=== PATIENT | female | born 1965 | race Hispanic/Latino ===

== ENCOUNTER → 2017-08-27 | Outpatient (CLI) | payer OTHER | END | disposition home or self-care (01) | LOC: OIH 12:44 | PROVIDERS: ATTEND Neurological Surgery | DX: M43.06 Spondylolysis, lumbar region (principal); M48.56XA Collapsed vertebra, not elsewhere classified, lumbar region, initial encounter for fracture | CPT/HCPCS: 72100 ==

== ENCOUNTER 2022-06-10 05:55 | Observation (INO) | payer OTHER ==
[2022-06-08 11:17] LABS: ALBUMIN 4.2 g/dL (3.5-5.0); BASOPHILS % (AUTO) 0.6 % (0.0-5.0); CARBON DIOXIDE 24 mmol/L (21-32); CHLORIDE 103 mmol/L (101-111); CREATININE 0.7 mg/dL (0.5-1.5); GLOMERULAR FILTR. RATE CALC 92 mL/min (>60); GLUCOSE,RANDOM 129 mg/dL (70-105); HEMATOCRIT 42.4 % (36-48); LYMPHOCYTES % (AUTO) 30.6 % (21.0-51.0); MEAN CORPUSCULAR HEMOGLOBIN 29.7 pg (27.0-33.0); MONOCYTES % (AUTO) 7.4 % (3.0-13.0); NEUTROPHILS % (AUTO) 60.1 % (40.0-77.0); PLATELET COUNT (AUTO) 305 K/uL (130-400); POTASSIUM 3.3 mmol/L (3.5-5.1); RED BLOOD CELL COUNT(AUTO) 4.71 MIL/uL (4.00-5.50); RED CELL DISTRIBUTION WIDTH 11.9 % (11.0-15.5); SODIUM SERUM 137 mmol/L (136-145); UREA NITROGEN, BLOOD 13 mg/dL (7-18)
[2022-06-08 11:18] LABS: CRP QUANTITATIVE < 2.00 mg/L (0.00-9.0); INR 0.97 (0.85-1.15); PROTHROMBIN TIME 10.6 SEC (9.6-11.6)
[2022-06-08 11:19] LABS: PARTIAL THROMBOPLASTIN TIME 24.6 SEC (26.3-35.5)
[2022-06-09 14:56] VITALS: BP 127/81
[2022-06-10] VITALS (27 sets, daily range): BP systolic 107–134; BP diastolic 65–86
[~2022-06-10] VITALS: Ht 160 cm; Wt 71.1 kg
[~2022-06-10 05:55] MED LIST: ESCI20TA38 PO; ROSU10TA28 PO; SEMA1PEN3 SQ; TRAZ-187 PO; VITAD50000 PO
[2022-06-10] MEDS: CEFAZOLIN SODIUM 1 GM VIAL IVP SCH ×4 (06:00→23:40)
[2022-06-10] MEDS ORDERED: TRANEXAMIC ACID 1000MG/10ML ONE ×2 (06:04→06:05)
[2022-06-10] MEDS ORDERED: ROPIVACAINE 0.5% 5MG/ML 30ML IJ ONE ×2 (06:49→07:13)
[2022-06-10] MEDS ORDERED: 0.9%NACL 1000ML 1,000 ML IV ONE (06:59)
[2022-06-10] MEDS ORDERED: KETOROLAC 30MG VIAL (30MG/ML) ONE (07:13)
[2022-06-10] MEDS ORDERED: SUCCINYLCHOLINE 200MG/10ML SYR ONE (08:11)
[2022-06-10] MEDS ORDERED: LIDOCAINE PF 100MG/5ML (2%) SYRINGE 5ML ONE (08:11)
[2022-06-10] MEDS ORDERED: ONDANSETRON 4MG INJ ONE (08:11)
[2022-06-10] MEDS ORDERED: NEOSTIGMINE 5MG/5ML SYR IV ONE (08:12)
[2022-06-10] MEDS ORDERED: FENTANYL CITRATE PF 50 MCG/1 ML 2ML VIAL ONE (08:12)
[2022-06-10] MEDS ORDERED: PROPOFOL 10 MG/ML 20ML VIAL IV ONE (08:12)
[2022-06-10] MEDS ORDERED: MIDAZOLAM HCL 1 MG/ML 2ML VIAL ONE (08:12)
[2022-06-10] MEDS ORDERED: GLYCOPYRROLATE 1 MG/5 ML SYRINGE ONE (08:12)
[2022-06-10] MEDS ORDERED: DEXAMETHASONE SOD PHOSPHATE 10MG/ML 1ML VIAL ONE (08:12)
[2022-06-10] MEDS ORDERED: ROCURONIUM 10MG/1ML SYR 10 MG/ML ML ONE (08:12)
[2022-06-10] MEDS ORDERED: EPHEDRINE SULFATE 50 MG/ML AMPULE ONE (09:15)
[2022-06-10] MEDS ORDERED: FERROUS FUMARATE 324 MG TABLET PO PRN (11:00)
[2022-06-10] MEDS ORDERED: ONDANSETRON 4MG INJ IVP PRN (11:00)
[2022-06-10] MEDS ORDERED: DiphenhydrAMINE HCL 50 MG/ML VIAL IVP PRN (11:00)
[2022-06-10] MEDS ORDERED: LIDOCAINE HCL-MPF 1% 2ML VIAL IV PRN (11:00)
[2022-06-10] MEDS ORDERED: TRAMADOL HCL 50 MG TABLET PO PRN (11:00)
[2022-06-10] MEDS ORDERED: 0.9%NACL 1000ML 1,000 ML IV SCH (11:00)
[2022-06-10] MEDS ORDERED: POTASSIUM CHLORIDE 10% ELIXIR 20 MEQ/15 ML UDCUP PO PRN (11:00)
[2022-06-10] MEDS ORDERED: POTASSIUM CHLORIDE 20MEQ/100ML 100 ML IV PRN (11:00)
[2022-06-10] MEDS ORDERED: MEPERIDINE-PF 25 MG/ML SYG ONE (11:05)
[2022-06-10] MEDS: KETOROLAC 15MG/ML VIAL (15MG/ML) IV SCH ×2 (13:24→19:57)
[2022-06-10] MEDS: GABAPENTIN 100 MG CAPSULE PO SCH ×2 (15:11→19:56)
[2022-06-10] MEDS: DOCUSATE SODIUM 100 MG CAP PO SCH (19:56)
[2022-06-10] MEDS: ATORVASTATIN 20 MG TABLET PO SCH (19:56)
[2022-06-10] MEDS: CYCLOBENZAPRINE HCL 10 MG TABLET PO PRN (19:56)
[2022-06-10] MEDS: KCL 20 MEQ ERTAB PO PRN ×2 (19:57→21:37)
[2022-06-10] MEDS: TRAZODONE HCL 100 MG TABLET PO SCH (21:37)
[2022-06-10] MEDS: HYDROCODONE/ACETAMINOPHEN 5/325 MG TAB PO PRN (23:46)
[2022-06-11] MEDS: KETOROLAC 15MG/ML VIAL (15MG/ML) IV SCH (02:02)
[2022-06-11 04:16] LABS: HEMATOCRIT 32.2 % (36-48); MEAN CORPUSCULAR HEMOGLOBIN 29.9 pg (27.0-33.0); MEAN CORPUSCULAR HGB CONC 34.2 g/dL (32.0-36.0); MEAN CORPUSCULAR VOLUME 87.5 fL (79-99); RED BLOOD CELL COUNT(AUTO) 3.68 MIL/uL (4.00-5.50); WHITE BLOOD COUNT (AUTO) 13.5 K/uL (4.8-10.8)
[2022-06-11 04:19] VITALS: BP 108/66
[2022-06-11 04:23] LABS: CREATININE 0.7 mg/dL (0.5-1.5); POTASSIUM 3.7 mmol/L (3.5-5.1)
[2022-06-11] MEDS: CALCIUM CARB 500MG PO PRN ×2 (05:08→20:53)
[2022-06-11] MEDS: KCL 20 MEQ ERTAB PO PRN ×2 (05:09→20:54)
[2022-06-11 08:00] VITALS: BP 131/78
[2022-06-11] MEDS: HYDROCODONE/ACETAMINOPHEN 5/325 MG TAB PO PRN ×3 (08:01→20:54)
[2022-06-11] MEDS: DOCUSATE SODIUM 100 MG CAP PO SCH ×2 (09:49→20:53)
[2022-06-11] MEDS: POLYETHYLENE GLYCOL 3350 17 GM POWD.PACK PO SCH (09:49)
[2022-06-11] MEDS: ASPIRIN 325MG TAB PO SCH (09:49)
[2022-06-11] MEDS: GABAPENTIN 100 MG CAPSULE PO SCH ×3 (09:49→20:53)
[2022-06-11] MEDS: CITALOPRAM 20 MG TABLET PO SCH (09:49)
[2022-06-11 11:30] VITALS: BP 122/78
[2022-06-11 16:30] VITALS: BP 123/69
[2022-06-11 19:53] VITALS: BP 123/67
[2022-06-11] MEDS: ATORVASTATIN 20 MG TABLET PO SCH (20:53)
[2022-06-11] MEDS: TRAZODONE HCL 100 MG TABLET PO SCH (20:53)
[2022-06-11 23:23] VITALS: BP 132/73
[2022-06-12] MEDS: HYDROCODONE/ACETAMINOPHEN 5/325 MG TAB PO PRN ×2 (02:17→06:33)
[2022-06-12 04:10] VITALS: BP 119/77
[2022-06-12 08:00] VITALS: BP 143/71
[2022-06-12] MEDS: CYCLOBENZAPRINE HCL 10 MG TABLET PO PRN (10:17)
[2022-06-12] MEDS: DOCUSATE SODIUM 100 MG CAP PO SCH (10:17)
[2022-06-12] MEDS: CITALOPRAM 20 MG TABLET PO SCH (10:17)
[2022-06-12] MEDS: POLYETHYLENE GLYCOL 3350 17 GM POWD.PACK PO SCH (10:17)
[2022-06-12] MEDS: ASPIRIN 325MG TAB PO SCH (10:20)
[2022-06-12] MEDS: GABAPENTIN 100 MG CAPSULE PO SCH ×2 (10:23→14:36)
[2022-06-12 11:56] VITALS: BP 129/71
[2022-06-12] MEDS ORDERED: MAGNESIUM HYDROXIDE 30 ML/UDCUP PO PRN (12:00)
[2022-06-12] MEDS ORDERED: MAGNESIUM HYDROXIDE 30 ML/UDCUP PO SCH (12:30)
[2022-06-12] MEDS ORDERED: BISACODYL 10 MG SUPP.RECT RC SCH (14:30)
[2022-06-12] MEDS ORDERED: ASPI-1026 PO (15:22)
[2022-06-12] MEDS ORDERED: HYDR-4060 PO (15:22)
[2022-06-12] MEDS ORDERED: GABA100C PO (15:22)
[2022-06-12] MEDS ORDERED: DOCU-116 PO (15:22)
[2022-06-12] MEDS ORDERED: CYCL-309 PO (15:22)
[2022-06-13] MEDS ORDERED: BISACODYL 10 MG SUPP.RECT RC PRN (11:00)
[2022-06-17] MEDS ORDERED: **HM**Cholecalciferol (Vitamin D3) 50,000 UNITS PO SCH (09:00)
[2022-06-17] MEDS ORDERED: SEMAGLUTIDE 1 MG SQ SCH (09:00)
== END 2022-06-12 17:30 | disposition home health service (06) ==
LOC: DAH 05:55 → DAHIP 05:56 → 4DH 12:46
PROVIDERS: ADMIT Student in an Organized Health Care Education/Training Program; ATTEND Student in an Organized Health Care Education/Training Program
DX: M17.11 Unilateral primary osteoarthritis, right knee (principal); Z20.822 Contact with and (suspected) exposure to COVID-19; M25.561 Pain in right knee; G89.29 Other chronic pain; R26.89 Other abnormalities of gait and mobility; D64.89 Other specified anemias; Z79.899 Other long term (current) drug therapy; Z98.890 Other specified postprocedural states; Z79.82 Long term (current) use of aspirin
CPT/HCPCS: 82040; 80048 ×2; 85025; 85610; 85730; 84134; 86140; 87426; 36415 ×2; 87641; 27447; 96374; 96376 ×3; 96375; 76942; 64447; 82948 ×12; 73560; 97161; 97039 ×2; 97530 ×5; 85027; 97116 ×4; G0378 ×49; A4663; A4215 ×2; A4649 ×3; J3010; J0690 ×3; J3490 ×4; J0330; J1100; J2710; J7030; J2001; J2250; J2704; J2405; J1885 ×4; J2175; J2795 ×2; G0168; A4930; C1776; A6255; A4223 ×2; A4222; A4221; A4216

== ENCOUNTER → 2024-11-06 | Outpatient (CLI) | payer OTHER ==
[~2024-11-06] MED LIST changes: +ASPI-1026 PO; +CYCL-309 PO; +DOCU-116 PO; +GABA100C PO; +HYDR-4060 PO; -ROSU10TA28 PO; +ROSU10TA72 PO
--- NOTE | 2024-11-06 14:24 | HMCIMG ---
CT calcium scoring Clinical Information: [facility] SCREENING Comparison: None CT Dose Index (CTDI): 13.30 mGy Dose Length Product (DLP): 186.18 total mGy-cm Findings: Calcium score 360.4. Moderate calcification. The CT scan is not a complete chest CT. Covered portion is reviewed for incidental findings. No incidental findings seen. IMPRESSION: Calcium score as above. Calcium score reference stable: 0: No identifiable calcification 1- 10: Minimal identifiable calcification 11-100: Mild calcification 101- 400: Moderate calcification 401 and above: Significant calcification Automated exposure control and adequate statistical iterative reconstructions were utilized as dose reduction techniques.
== END | disposition home or self-care (01) ==
LOC: RAH 13:39
PROVIDERS: ATTEND Internal Medicine Cardiovascular Disease
DX: Z13.6 Encounter for screening for cardiovascular disorders (principal); E78.5 Hyperlipidemia, unspecified; R93.1 Abnormal findings on diagnostic imaging of heart and coronary circulation
CPT/HCPCS: 75571